=== PATIENT | male | born 1955 | race Caucasian/White ===

== ENCOUNTER → 2024-03-02 13:47 | Outpatient (REF) | payer MEDICARE, SELFPAY | LOC: SDSPAT 13:47 | PROVIDERS: ATTENDING PHYSICIAN Surgery | DX: K40.90 Unilateral inguinal hernia, without obstruction or gangrene, not specified as recurrent (principal) | CPT/HCPCS: 36415; 93005 ==

== ENCOUNTER 2024-03-12 06:10 | Day surgery (SDC) | payer MEDICARE, SELFPAY ==
[2024-03-02 14:07] VITALS: BMI 23.8
--- NOTE | 2024-03-03 15:43 | PTCARENOTE ---
Abnormal EKG reviewed by Dr. Dunham, no further action requested.
[2024-03-12] VITALS (16 sets, daily range): BP systolic 142–183; BP diastolic 68–94; BMI 23.8
[2024-03-12] MEDS: NORMOSOL-R 1000 IV (07:20)
[2024-03-12] MEDS: TYLENOL 1000 MG PO (07:21)
--- NOTE | 2024-03-12 09:03 | OR.RPT ---
Operative Report
Operative Report
Primary Surgeon: Delmar
Assisting: Alaina Desai PA-C
Pre-op Diagnosis: Right inguinal hernia
Post-op Diagnosis: Same
Procedure Performed: Robot assisted laparoscopic repair right inguinal hernia
Anesthesia Type: GETA
Specimen / Cultures: None
Estimated Blood Loss: 5cc
Complications: None immediate
Operative Findings: Indirect defect, XL MID 3D Max
Date of surgery: 03/12/24
Indications:� This 68M developed symptomatic right inguinal hernia. Robot assisted laparoscopic repair was planned.
Description of procedure:� The patient was taken to the operating room and positioned into supine position. The patient�s abdomen was prepped and draped in standard sterile fashion. A time-out was completed verifying correct patient, procedure,
site, positioning, and implants and special equipment prior to beginning this procedure.� The hernia was manually reduced after induction. A stab incision was made in the left upper quadrant, a Veress needle was inserted and proper position was
confirmed by aspiration and saline drop test. Following this, pneumoperitoneum was created with insufflation of carbon dioxide to 12 mmHg. Then a 8mm robotic trocar was inserted above and to the left of the umbilicus. A laparoscope was inserted and
the area of initial trocar entry and Veress needle placement were both inspected and no injuries were found. Two 8mm trocars were then placed lateral to the rectus sheath under direct visualization.
Both inguinal regions were inspected and the median umbilical ligament, medial umbilical ligament, and lateral umbilical fold were identified. Attention was turned to the right groin. The peritoneum was incised transversely above the defect and a
flap was developed in the caudad direction. Anthony�s ligament was identified ultimately dissected to its junction with the iliac vein and the space of Retzius was developed bluntly.� The dissection was continued inferiorly to the iliopubic tract,
with care taken to avoid injury to the femoral branch of the genitofemoral nerve and the lateral femoral cutaneous nerve. The cord structures were parietalized.
The direct space was inspected and a hernia was not identified. The femoral space was inspected no defect was identified.� The indirect space was inspected and a hernia was identified and reduced by gentle traction. The canal was inspected and no
cord lipoma was identified.
Extra large right MID 3D max mesh was passed through a trocar. The mesh was placed into the preperitoneal space and moved into position to lay flat and completely cover the direct, indirect, and femoral spaces with overlap beyond the midline. The
mesh was secured into place using 2-0 vicryl suture to Anthony�s ligament medially and laterally. Care was taken to avoid the inferolateral triangles containing the iliac vessels and genital nerves. The peritoneal flap was closed over the mesh and
secured with 2-0 monocryl stratafix suture in similar positions of safety. A 14g angiocath was used to decompress the preperitoneal space revealing good seal and all mesh in good position without folding or curling.
After ensuring adequate hemostasis, the trocars were removed and the pneumoperitoneum allowed to escape. The trocar incisions were closed at the skin level using 4-0 monocryl and topical skin adhesive. All counts were correct and the patient
tolerated the procedure well and was taken to the postanesthesia care unit in stable condition.
The assistance of Lloyd FUNG was required due to the complexity of the procedure. During the procedure she assisted with retraction, resection, and closure of the wound.
[2024-03-12] MEDS: DILAUDID 0.25 MG IV (09:21)
== END 2024-03-12 11:30 | disposition home or self-care (01) ==
LOC: SDS 06:10
PROVIDERS: ATTENDING PHYSICIAN Surgery
DX: K40.90 Unilateral inguinal hernia, without obstruction or gangrene, not specified as recurrent (principal)
CPT/HCPCS: 49650; C1781

== ENCOUNTER → 2024-05-21 07:47 | Outpatient (REF) | payer MEDICARE, SELFPAY | LOC: DHCBC/DCA 07:47 | PROVIDERS: ATTENDING PHYSICIAN Internal Medicine | DX: I44.7 Left bundle-branch block, unspecified (principal); I10 Essential (primary) hypertension; E78.2 Mixed hyperlipidemia; R94.31 Abnormal electrocardiogram [ECG] [EKG] | CPT/HCPCS: 78452; 93017; A9500; J2785 ==

== ENCOUNTER → 2024-05-25 07:07 | Outpatient (REF) | payer MEDICARE, SELFPAY | LOC: HWRCS 07:07 | PROVIDERS: ATTENDING PHYSICIAN Internal Medicine | DX: I44.7 Left bundle-branch block, unspecified (principal); I10 Essential (primary) hypertension; E78.2 Mixed hyperlipidemia | CPT/HCPCS: 93306 ==

== ENCOUNTER 2024-09-10 07:59 | Day surgery (SDC) | payer MEDICARE, OTHER, SELFPAY ==
--- NOTE | 2024-09-03 08:54 | HPS.HSE ---
Family Physician
-
Family Physician: NO INTERVIEW UNKNOWN
Chief Complaint
-
Left bundle branch block. Abnormal stress test.
History of Present Illness
The patient is a 68 year old male presenting today after a newly discovered left bundle branch block on his most recent EKG. The patient notes that he has experienced intermittent episodes of 'slight heart pain' without associated
shortness of breath, palpitations, syncope, or lower extremity swelling in the past. His cardiac history includes hypertension, notably improving with an increase in Lisinopril from 5 mg to 10 mg daily, and hyperlipidemia. He has a strong family
history of early onset coronary artery disease. Reportedly, his father of a myocardial infarction in his late 60s and his brother recently received a stent and will need a subsequent CABG for his coronary artery disease at age 62. Given his
risk factors, he was advised to undergo an echocardiogram and nuclear stress test. His echocardiogram on 05/25/2024 revealed a low-normal ejection fraction with mild-moderate valvular abnormalities. His stress test on 05/21/2024 noted several fixed
perfusion defects consistent with infarction. He will proceed with a left cardiac catheterization at this time for definitive coronary assessment. He denies any current complaints today such as chest pain and shortness of breath at rest, nausea,
vomiting, diarrhea, lightheadedness, dizziness, cough, sore throat, or fever.
Medical History
Past Medical History
Past Medical History: Reports Other
Additional Past Medical History:
1. Left bundle branch block, newly diagnosed.
2. Abnormal stress test.
3. Hypertension.
4. Hyperlipidemia.
5. First degree AV block.
6. Mild-moderate mitral regurgitation.
7. Mild aortic regurgitation.
8. Mild tricuspid regurgitation.
9. Chronic back pain with opioid dependence.
10. BPH.
Past Surgical History: Reports Other
Additional Past Surgical History:
1. Left inguinal hernia repair x4.
2. Right inguinal hernia repair.
3. Tonsillectomy.
4. Colonoscopy x2.
Social History
Tobacco: Non-smoker
Alcohol: Other (He reports, on average, consuming 15 cans of beer weekly. Alcohol use is mostly on weekends. )
Living: Other (He lives in a 1 story home with his girlfriend. )
Family History
Family History: Early CAD
Allergies / Home Medications
Allergy/Medication List:
Home medications:
1. Atorvastatin 20 mg p.o. daily.
2. Diclofenac 100 mg p.o. daily as needed.
3. Lisinopril 10 mg p.o. daily.
4. Multivitamin 1 tablet p.o. on Wednesdays.
5. Oxycontin 15 mg p.o. every 8 hours.
6. Tamsulosin 0.4 mg p.o. at bedtime.
7. Aspirin 81 mg p.o. daily.
Allergies: No known allergies.
Review of Systems
-
A 12 point ROS was completed and negative except as noted: Yes
Physical Exam
Vital Signs
Blood pressure 169/79. Heart rate 60. Respirations 18. Pulse ox 99% on room air.
Height 5 feet, 5 inches. Weight 69.2 kg. BMI 25.4.
Physical Exam
General: Well Developed, Well Nourished and No Apparent Distress
HEENT: NormoCephalic, Moist mucous membranes, Atraumatic and PERRLA
Respiratory: Clear
Cardiac: Regular Rhythm
GI: Soft, Non Tender and Non Distended
Musculoskeletal: No Edema and Normal Gait & Station
Skin: Warm and Dry
Neuro: AO x 3 and Nonfocal/grossly intact
Laboratory Results
-
EKG 09/03/2024: Sinus rhythm with first degree AV block. Left axis deviation. Left bundle branch block.
Echocardiogram 05/25/2024: LV ejection fraction is 50-55% by visual assessment. Wall motion is consistent with conduction abnormality (left bundle branch block). Normal right ventricular size and function. Mild to moderate mitral regurgitation. Mild
aortic regurgitation. Mild tricuspid regurgitation.
Nuclear stress test 05/21/2024: Inconclusive EKG for ischemia given left bundle branch block. Fixed defects in the basal anteroseptal, basal inferior, basal inferoseptal, mid inferior, and mid inferoseptal consistent with infarction. The ejection
fraction is 50%. This is a moderate risk study.
Impression/Plan
-
IMPRESSION/PLAN:
1. Left bundle branch block and abnormal stress test: The patient is in need of a left cardiac catheterization with Dr. Joseph Desai on 09/10/2024. The benefits and risks of the procedure have been explained to the patient. The patient
understands these risks and wishes to proceed. He is aware to continue his baby Aspirin daily, up to and including the morning of his procedure.
[2024-09-03 09:11] VITALS: BMI 25.4
[2024-09-10] VITALS (8 sets, daily range): BP systolic 97–169; BP diastolic 40–89; BMI 25.3
[2024-09-10] MEDS: NSS 207 ML IV (08:35)
[2024-09-10] MEDS: NSS 1000 IV (09:53)
--- NOTE | 2024-09-10 11:14 | ITS.CL.PN ---
[facility] - Procedure Note
Procedure
Procedure Note:
CARDIAC CATHETERIZATION REPORT
Date of Procedure: 09/10/2024
Referring: Dr. Apolinar Hines MD
Indication: positive cardiac stress test
PROCEDURE(S)
1. left heart catheterization
2. coronary angiography
ACCESS: 6F right radial artery (closure: radial band)
CATHETERS
1. 6F JR4
2. 6F JL3.5
Moderate Sedation: 15 minutes of moderate sedation was utilized. An independent medical program specialist was present to assist with and help manage the patient's level of consciousness and physiologic status.
Ultrasound Guided Vascular Access (right radial artery): Ultrasound was utilized for vascular access. The vessel was visualized under ultrasound and noted to be patent. An image of the vessel was stored permanently in the patient's medical record.
Under direct ultrasound guidance, vascular access was obtained using a modified Seldinger technique and a 6 Armenian sheath was placed.
HEMODYNAMIC DATA
LV 118/4 (EDP 10) mmHg
AO 115/57 (mean 82) mmHg
CORONARY ANGIOGRAPHY
Dominance: Right
LM: Mild disease
LAD: Large vessel giving rise to a moderate caliber D1 and wrapping around the apex. There is mild disease spanning the D1 ostium. The ostial D1 itself has a smooth, short 60 to 70% stenosis with normal RAMONA-3 flow distally.
LCx: Large vessel giving rise to a large OM1 and small OM2. There are trivial luminal irregularities.
RCA: Large vessel giving rise to a small RPDA and large RPL branch. The midportion of the small RPDA appears to have a total occlusion. There is no collateralization from the right or left system. The large wraparound LAD suggests that the
occluded RPDA probably constitutes a small territory but likely explains the stress abnormality.
RADIATION: dose to 32 mGy; DAP 14.1 Gy*cm2; fluoroscopy time 2.5 min
CONCLUSIONS
1. two-vessel coronary artery disease in a right dominant system. Total occlusion of a small RPDA likely explains the patient's stress abnormality. The diagonal is a small vessel and does not appear flow-limiting. In the absence of symptoms this
coronary disease is best medically managed.
2. normal LV filling pressure and no aortic stenosis
2. recommend aggressive secondary management of coronary artery disease and expectant management after cardiac catheterization via right radial approach
Copy to: Dr. Apolinar Hines MD (sas architect); [ ] (PCP)
Signed: Joseph Desai MD, PhD
== END 2024-09-10 12:30 | disposition home or self-care (01) ==
LOC: CATH 07:59
PROVIDERS: ATTENDING PHYSICIAN Student in an Organized Health Care Education/Training Program
DX: I25.10 Atherosclerotic heart disease of native coronary artery without angina pectoris (principal); R94.39 Abnormal result of other cardiovascular function study; I44.7 Left bundle-branch block, unspecified; I10 Essential (primary) hypertension; E78.5 Hyperlipidemia, unspecified; I44.0 Atrioventricular block, first degree; I08.3 Combined rheumatic disorders of mitral, aortic and tricuspid valves; G89.29 Other chronic pain; N40.0 Benign prostatic hyperplasia without lower urinary tract symptoms; Z82.49 Family history of ischemic heart disease and other diseases of the circulatory system; Z79.82 Long term (current) use of aspirin
CPT/HCPCS: 99152; C1894; 76937; 93458; Q9967

== ENCOUNTER 2025-05-29 06:41 | Emergency (ER) | payer MEDICARE, OTHER, SELFPAY ==
[2025-05-29 06:43] VITALS: BP 159/76
[2025-05-29 08:03] VITALS: BP 126/80; BMI 26.7
--- NOTE | 2025-05-29 08:23 | EDRN ---
pt came back from ay ambulating, is not pacing the room and moaning in pain, pt has a make shift sling on the right arm
[2025-05-29] MEDS: DILAUDID 1 MG IV (09:11)
[2025-05-29] MEDS: TORADOL 15 MG IV (09:11)
[2025-05-29 09:21] VITALS: BP 150/72
[2025-05-29 09:28] VITALS: BP 150/72
[2025-05-29 09:29] LABS: Hematocrit 36.6 % (39.0-52.0); Hemoglobin 12.5 g/dL (13.0-18.0); Mean Corp Hgb Conc. 34.2 g/dL (33.0-37.0); Mean Corpuscular Volume 89.5 fL (80.0-94.0); Nucleated Red Blood Cells % 0 % (-); Platelet Count 208 10^3/uL (130-400); Red Cell Dist. Width 14.3 % (11.5-14.5)
[2025-05-29 09:34] LABS: ALT (SGPT) 23 U/L (0-50); AST (SGOT) 22 U/L (17-59); Albumin 4.5 g/dl (3.5-5.0); Alkaline Phosphatase 80 U/L (38-126); Blood Urea Nitrogen 25 mg/dl (9-20); Calcium 9.8 mg/dl (8.4-10.2); Carbon Dioxide 24 mmol/L (22-30); Chloride 104 mmol/L (98-107); Estimated Creatinine Clearance 53 ml/min; Glucose 106 mg/dl (70-99); Potassium 4.8 mmol/L (3.5-5.1); Sodium 135 mmol/L (135-145); Total Protein 7.1 g/dl (6.3-8.2); Uric Acid 5.6 mg/dl (3.5-8.5); eGFR > 60.00
[2025-05-29 09:37] LABS: C-Reactive Protein 9.40 mg/L (0.0-10.00)
--- NOTE | 2025-05-29 09:54 | ED.GENMED ---
History of Present Illness
General
Chief Complaint: Extremity Pain (non-traumatic)
Source: patient and spouse
Exam Limitations: none
Time Seen by Provider: 05/29/25 08:48
Nursing documentation reviewed up to this point in time: agreed with
History of Present Illness
History of Present Illness:
The patient is a pleasant 69-year-old man who reports pain that started in his right shoulder area yesterday. Patient reports that he put a heating pad on it and initially felt better but since 9 PM last night, the pain has been severe. Patient
reports that he feels a specific area of pain near the front of his right shoulder that radiates down towards his upper arm, above his right elbow. He denies weakness and numbness of the right arm. He reports he has chronic back pain and takes 15
mg of oxycodone 3 times a day for this. He tried the oxycodone and it did not help with the pain. Denies injury.
Past History
Past History
ED Past Medical History: HTN, Hypercholesterolemia and Other (Chronic back pain)
ED Past Surgical History: Other
Social History
Tobacco: Other
Alcohol: Other
Drug: None
Personal:
Living: with family
Employment: Other
Family History
Family History: Other
Review of Systems
Review of Systems
Allergies reviewed?: Yes
All Other Systems: ROS reviewed and negative except as documented in HPI and ROS
Constitutional: Reports no symptoms
EENT: Reports no symptoms
Respiratory: Reports no symptoms
Cardiac: Reports no symptoms
ABD/GI: Reports no symptoms
: Reports no symptoms
Musculoskeletal: Reports joint pain
Skin: Reports no symptoms
Neurological: Reports no symptoms
Endocrine: Reports no symptoms
Hematologic/Lymphatic: Reports no symptoms
Psychiatric: Reports no symptoms
Phy Exam
Physical Exam
Physical Exam:
General patient appears very uncomfortable, moaning in pain and walking around room and hallway, holding up on his right elbow
Neck; supple
HEENT: Extraocular muscles intact,
Cardiovascular: Regular rate and regular
Lungs;' clear
Abdomen: Soft, nontender
Skin: No skin erythema, no rash
Neurological: 5 out of 5 strength in all extremities. Equal sensation in upper extremities bilaterally
Extremities; patient has localized significant tenderness and mild swelling of anterior lateral right humeral area. Area feels slightly warm to the touch. No areas of deformity or marked swelling. No areas of skin redness. Strong pulses in right
upper extremity
Course
Orders/Labs/Results
Orders:
Orders
05/29/25 07:51
CR Humerus - Right Min 2 View* Urgent
Comment:
Reason For Exam: pain with swelling
CR Shoulder - Right Min 2 View Urgent
Comment:
Reason For Exam: pain with swelling
05/29/25 08:55
HYDROmorphone [Dilaudid] 1 mg IV NOW STA
05/29/25 08:58
Ketorolac [Toradol] 15 mg IV NOW STA
05/29/25 09:09
CRP [C-Reactive Protein] Urgent
Complete Blood Count/With Diff Urgent
Comprehensive Metabolic Panel Urgent
ESR [Erythrocyte Sed Rate] Urgent
Uric Acid Urgent
05/29/25 10:15
Prednisone [Deltasone] 40 mg PO NOW STA
Abnormal Lab Results
05/29/25
09:09
WBC 11.9 H 10^3/uL
(4.8-10.8)
RBC 4.09 L 10^6/uL
(4.70-6.10)
Hgb 12.5 L g/dL
(13.0-18.0)
Hct 36.6 L %
(39.0-52.0)
MPV 11.7 H fL
(7.4-10.4)
Absolute Neuts (auto) 9.1 H 10^3/uL
(1.4-6.5)
Absolute Monos (auto) 1.1 H 10^3/uL
(0.1-0.6)
Neutrophils % 76.6 H %
(42.2-75.2)
Lymphocytes % 11.5 L %
(20.5-51.1)
BUN 25 H mg/dl
(9-20)
Glucose 106 H mg/dl
(70-99)
05/29/25 09:09
05/29/25 09:09
Vital Signs
Initial and Last Documented VS:
Initial Vital Signs
Temp Pulse Resp BP Pulse Ox
98.4 F 66 16 159/76 96
05/29/25 06:43 05/29/25 06:43 05/29/25 06:43 05/29/25 06:43 05/29/25 06:43
Last Documented Vital Signs
Temp Pulse Resp BP Pulse Ox
98.6 F 76 20 144/72 94
05/29/25 08:03 05/29/25 10:01 05/29/25 10:01 05/29/25 10:01 05/29/25 10:15
MDM/Problems Addressed
Differential Diagnosis Includes:
Septic arthritis of right shoulder, bursitis of right shoulder, osteoarthritis of right shoulder
MDM/Problems Addressed:
Patient presents with acute right shoulder pain
Chronic conditions affecting care: HTN
Acute Exacerbation and/or Progression of Chronic Illness:
Patient is acutely hypertensive, however, he is in discomfort and is anxious
*Radiology
Radiology exam reviewed: preliminary read by ED provider (Right shoulder and right humeral x-ray reviewed by me. No fracture) and radiology read reviewed
*Pulse Oximetry
SaO2: 96
Oxygen Mode of Delivery: Room air
Patient hypoxic: no
Comment: 96% on room air
*EKG
Interpreted by ED Provider?: NA
*Transit Proof Machine Operator Interpretation
Rate: Transit Proof Machine Operator- N/A
*Critical Care Note
Total Time (30-74mins, 75-104mins- exclusive of procedures): Not Applicable
Data Reviewed
Review of Other/Old Records Reveals: Testing (Cardiac catheterization report reviewed by me from 2024 which shows two-vessel disease)
Source: patient and spouse
Patient Management
Social determinants of health affecting care: Living situation and Strong social support
Discussion with other providers: Other (Dr. Shady Mcgraw who is agreeable to giving patient prednisone)
Escalation/DeEscalation of care consider admission/obs:
Patient's labs show no concerning lab abnormality. Patient is very low risk for septic joint given that he denies any recent fever, infections or IV drug use. Patient feels so much better with IV Dilaudid and Toradol. Case discussed with Dr. Caruso
Mariluz who said he could be followed in the office.
ED Attending Note
-
Portions of this chart may have been created with voice recognition software.� Occasional wrong word or��sound alike� substitutions may have occurred due to the inherent limitations of voice recognition software.
Discharge Plan
Departure
Patient Disposition: Home (Routine Discharge)
Date of Disposition: 05/29/25
Time of Disposition: 10:54
Patient with high blood pressure during this ER visit?: Yes
Condition: Good
Covid-19: Not Applicable
Discharge Problem:
Acute pain of right shoulder, Shoulder tendinitis
Instructions: Tendinopathy (DC), Shoulder pain - ED (DC), BLOOD PRESSURE
Prescriptions:
New
prednisone 10 mg tablet
10 mg PO DIRECTED 6 Days Qty: 18 0RF
Rx Instructions:
Take 40 mg of prednisone once daily on day 1 and day 2
Take 30 mg of prednisone once daily on day 3 and day 4
Take 20 mg of prednisone once daily on day 5 and day 6
hydromorphone [Dilaudid] 2 mg tablet
2 mg PO Q6H PRN (Reason: Pain) Qty: 3 0RF
No Action
tamsulosin 0.4 mg Capsule
0.4 mg PO HS
oxycodone [OxyContin] 15 mg Tablet,Oral Only,Ext.Rel.12 Hr
15 mg PO Q8H
lisinopril 10 mg Tablet
10 mg PO DAILY
aspirin 81 mg Capsule
81 mg PO DAILY
atorvastatin 40 mg tablet
40 mg PO QPM Qty: 90 3RF
Referrals:
Shady Mcgraw MD [Active, Orthopedics]
UNKNOWN - PT DOES,NOT KNOW [Family Provider]
Activity Restrictions/Additional Instructions:
You can continue to take your normal dose of oxycodone 3 times a day. In addition to this, please take 600 mg of Motrin with food every 6-8 hours.
You also need to take a steroid (prednisone) for 1 week. Please start your next dose tomorrow morning.
Please call the orthopedist, Dr. Shady Mcgraw, tomorrow morning to schedule an appointment
Interventions
Interventions:
*Risk Screen - Suicide Last Done: 05/29/25 06:43
*General Assessment Last Done: 05/29/25 06:43
*Neglect/Abuse Screening Last Done: 05/29/25 06:51
*ED- Fall Risk Assessment Last Done: 05/29/25 08:03
*ED COVID-19 Vaccine History Last Done: 05/29/25 08:03
*Nursing Disposition Last Done: 05/29/25 11:04
ED-Skin Assessment Last Done: 05/29/25 08:03
ED-Peripheral Vascular Assessment Last Done: 05/29/25 08:03
ED-Musculoskeletal Assessment Last Done: 05/29/25 08:03
Discharge Date and Time
Print Language: GERMAN
[2025-05-29 10:00] VITALS: BP 144/72
[2025-05-29 10:01] VITALS: BP 144/72
[2025-05-29] MEDS: DELTASONE 40 MG PO (10:25)
== END 2025-05-29 11:05 | disposition home or self-care (01) ==
LOC: EMR 06:41
PROVIDERS: EMERGENCY PHYSICIAN Emergency Medicine
DX: M25.521 Pain in right elbow (principal); M77.8 Other enthesopathies, not elsewhere classified; G89.29 Other chronic pain; M54.9 Dorsalgia, unspecified; I10 Essential (primary) hypertension; E78.00 Pure hypercholesterolemia, unspecified
CPT/HCPCS: 99283; 96374; 96375; 73030; 73060; 80053; 84550; 85025; 85652; 86140